=== PATIENT | female | born 1990 | race American Indian/Alaskan Native ===

== ENCOUNTER 2021-04-25 16:01 | Emergency (ER) | payer OTHER ==
--- NOTE | 2021-04-25 18:33 | Emergency Department Report ---
- General Chief Complaint: Upper Respiratory Infection Stated Complaint: COVID LIKE SYMPTOMS Time Seen by Provider: 04/25/21 16:53 Source: patient Mode of arrival: Ambulatory Limitations: No Limitations - History of Present Illness Initial Comments: This is a pleasant 30-year-old female presents the emergency department chief complaint of cough, nasal congestion, generalized body aches, fatigue over the past few days. She does report multiple coworkers have been sick with suspected COVID-19. She denies any known past medical history, current medications or known allergies to medications. She denies any recent surgeries or immobilization. - Related Data Previous Rx's Medication Instructions Recorded Last Taken Type Benzonatate [Tessalon Perles] 100 mg PO Q8HR #30 capsule 04/25/21 Unknown Rx Ibuprofen [Motrin 800 MG tab] 800 mg PO Q8HR PRN #30 tablet 04/25/21 Unknown Rx Allergies Allergy/AdvReac Type Severity Reaction Status Date / Time No Known Allergies Allergy Unverified 04/25/21 16:57 ED Review of Systems ROS: Stated complaint: COVID LIKE SYMPTOMS Other details as noted in HPI Comment: All other systems reviewed and negative Constitutional: chills, fever, malaise Eyes: denies: eye pain, eye discharge, vision change ENT: congestion. denies: ear pain, throat pain Respiratory: cough. denies: shortness of breath, wheezing Cardiovascular: as per HPI. denies: chest pain, palpitations Endocrine: no symptoms reported Gastrointestinal: denies: abdominal pain, nausea, diarrhea Genitourinary: denies: urgency, dysuria, discharge Musculoskeletal: myalgia. denies: back pain, joint swelling, arthralgia Skin: denies: rash, lesions Neurological: denies: headache, weakness, paresthesias Psychiatric: denies: anxiety, depression Hematological/Lymphatic: denies: easy bleeding, easy bruising ED Past Medical Hx - Medications Home Medications: Home Medications Medication Instructions Recorded Confirmed Last Taken Type Benzonatate [Tessalon Perles] 100 mg PO Q8HR #30 capsule 04/25/21 Unknown Rx Ibuprofen [Motrin 800 MG tab] 800 mg PO Q8HR PRN #30 tablet 04/25/21 Unknown Rx ED Physical Exam - General Limitations: No Limitations General appearance: alert, in no apparent distress - Head Head exam: Present: atraumatic, normocephalic - Eye Eye exam: Present: normal appearance, PERRL, EOMI Pupils: Present: normal accommodation - ENT ENT exam: Present: normal exam, normal orophraynx, mucous membranes moist - Neck Neck exam: Present: normal inspection, full ROM. Absent: tenderness, meningismus - Respiratory Respiratory exam: Present: normal lung sounds bilaterally. Absent: respiratory distress, wheezes, rales, rhonchi, stridor - Cardiovascular Cardiovascular Exam: Present: regular rate, normal rhythm, normal heart sounds. Absent: systolic murmur, diastolic murmur, rubs, gallop - GI/Abdominal GI/Abdominal exam: Present: soft, normal bowel sounds. Absent: distended, tenderness, guarding, rebound, rigid - Extremities Exam Extremities exam: Present: normal inspection, full ROM, normal capillary refill. Absent: tenderness, calf tenderness (No posterior calf tenderness, negative Homans' sign bilaterally) - Back Exam Back exam: Present: normal inspection, full ROM. Absent: tenderness, CVA tenderness (R), CVA tenderness (L) - Neurological Exam Neurological exam: Present: alert, oriented X3, normal gait - Psychiatric Psychiatric exam: Present: normal affect, normal mood - Skin Skin exam: Present: warm, dry, intact, normal color. Absent: rash ED Course Vital Signs 04/25/21 16:54 Temperature 99.6 F Pulse Rate 112 H Respiratory 20 Rate O2 Sat by Pulse 99 Oximetry ED Medical Decision Making - Medical Decision Making Patient is hemodynamically stable and in no acute distress. Vital signs are stable. She is slightly tachycardic initially at 122 however on recheck it was as low as 108. She does have a low-grade temperature which I suspect is likely the cause of this. She has a low risk by Wells criteria for DVT or PE. She has no clinical symptoms of DVT. The patient symptoms are consistent with acute viral syndrome likely secondary to COVID-19 and I will treat her symptomatically. I recommended adhering to the CDC guidelines and to socially distance, frequently wash her hands, wear facemask and will write her a work note for the next 5 days per the CDC guidelines. Patient was instructed to return to the ER with any change or worsening symptoms. She verbalized understand the diagnosis, treatment plan and follow-up instructions all of her questions were answered. - Differential Diagnosis COVID-19, influenza, pneumonia Critical care attestation.: If time is entered above; I have spent that time in minutes in the direct care of this critically ill patient, excluding procedure time. ED Disposition Clinical Impression: Suspected COVID-19 virus infection, Acute viral syndrome Disposition: 01 HOME / SELF CARE / HOMELESS Is pt being admited?: No Condition: Stable Instructions: Viral Respiratory Infection, [id number] Prescriptions: Ibuprofen [Motrin 800 MG tab] 800 mg PO Q8HR PRN #30 tablet PRN Reason: pain, fever Benzonatate [Tessalon Perles] 100 mg PO Q8HR #30 capsule Referrals: PRIMARY CARE, [Primary Care Provider] - 3-5 Days [facility] [Provider Group] - 3-5 Days Forms: Work/School Release Form(ED) Time of Disposition: 18:32
--- NOTE | 2021-04-26 09:38 | Electrocardiograph Report ---
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
== END 2021-04-25 19:29 | disposition home or self-care (01) ==
LOC: ED 16:01
DX: B34.9 Viral infection, unspecified (principal); Z20.822 Contact with and (suspected) exposure to COVID-19
CPT/HCPCS: 93005; 99282